=== PATIENT | male | born 1995 | race Caucasian/White ===

== ENCOUNTER 2016-05-28 21:53 | Emergency (ER) | payer SELFPAY ==
[~2016-05-28] VITALS: Ht 172.7 cm; Wt 68.0 kg
[2016-05-28] MEDS ORDERED: SODIUM CHLORIDE 0.9% 1,000 ML IV ONE (23:24)
[2016-05-28] MEDS ORDERED: ONDANSETRON HCL 4MG/2ML VIAL IV STA (23:24)
[2016-05-28 23:51] LABS: HEMATOCRIT. 43.2 % (42.0-52.0); HEMOGLOBIN. 14.6 g/dL (14.0-18.0); MEAN CORPUSCULAR HEMOGLOBIN 28.5 pg (28.0-32.0); MEAN CORPUSCULAR HGB CONC 33.7 g/dL (31.0-37.0); MEAN CORPUSCULAR VOLUME 84.7 fL (80.0-94.0); MEAN PLATELET VOLUME 8.2 fl (7.4-10.4); PLATELET 231 x1000/uL (130-400); RED BLOOD CELL COUNT 5.11 mill/uL (4.7-6.1); WHITE BLOOD COUNT 16.6 x1000/uL (4.5-11.0)
[2016-05-28 23:53] LABS: DIFFERENTIAL COMMENT 1
[2016-05-28 23:55] LABS: CHLORIDE 104 mEq/L (98-107); INDEX HEMOLYSI 1 (1-3); INDEX ICTERIC 1 (1-4); INDEX LIPEMIC 1 (1-3)
[2016-05-29 00:06] LABS: ALANINE AMINOTRANSFERASE 18 IU/L (13-61); ALBUMIN 4.4 g/dL (3.4-5.0); ANION GAP 17; CALCIUM 8.2 mg/dL (8.5-10.1); CARBON DIOXIDE 24 mEq/L (21-32); ETHANOL BLOOD 240 mg/dL; UREA NITROGEN BLOOD 15 mg/dL (7-21); eGFR > 60 mL/min (>60)
[2016-05-29 02:07] LABS: PLATELET ESTIMATE NORMAL
[2016-05-29 04:41] LABS: *AMPHETAMINES SCREEN URINE NEGATIVE (NEGATIVE); *BARBITURATES SCREEN URINE NEGATIVE (NEGATIVE); *BENZODIAZEPINES SCREEN URINE NEGATIVE (NEGATIVE); *COCAINE SCREEN URINE NEGATIVE (NEGATIVE); CANNABINOID URINE SCREEN NEGATIVE (NEGATIVE); METHADONE URINE SCREEN NEGATIVE (NEGATIVE); OPIATES URINE SCREEN NEGATIVE (NEGATIVE); PHENCYCLIDINE URINE SCREEN NEGATIVE (NEGATIVE)
[2016-05-29 04:46] LABS: ECSTASY MDMA SCREEN URINE NEGATIVE (NEGATIVE)
[2016-05-29 05:57] VITALS: BP 121/62
== END 2016-05-29 06:03 | disposition home or self-care (01) ==
LOC: EDBD 21:53 → ER 21:53
DX: F10.129 Alcohol abuse with intoxication, unspecified (principal); Y90.8 Blood alcohol level of 240 mg/100 ml or more
CPT/HCPCS: 36415; 70450; 71010; 80053; 80305; 85025; 96361; 96374; 99291; G0482; J2405; J7030; Z7610